=== PATIENT | male | born 1955 | race Caucasian/White ===

== ENCOUNTER → 2018-06-06 | Outpatient (CLI) | payer BC ==
--- NOTE | 2018-06-06 13:04 | CT ---
EXAMINATION TYPE: CT heart w calcium score DATE OF EXAM: 06/06/2018 COMPARISON: HISTORY: Screening for cardiovascular disorder. 213.9 CT DLP: 51.6 mGycm Automated exposure control for dose reduction was used. CT CALCIUM SCORING Coronary calcium is a marker for plaque (fatty deposits) in a blood vessel or atherosclerosis (harden ing of the arteries). The presence and amount of calcium detected in a coronary artery by the CT sca n, indicates the presence and amount of atherosclerotic plaque. These calcium deposits appear years before the development of heart disease symptoms such as chest pain and shortness of breath. A calcium score is computed for each of the coronary arteries based upon the volume and density of th e calcium deposits. This can be referred to as your calcified plaque burden. It does not correspond directly to the percentage of narrowing in the artery but does correlate with the severity of the un derlying coronary atherosclerosis. PROCEDURE TECHNIQUE - Prospective Gating was used. Slice thickness: 3mm. Density threshold (HU): 130, Pixel threshold: 3, Algorithm: discrete. RESULTS Region: LM Calcium Score (Agatston): 100 Volume (mm3): 81 Region: RCA Calcium Score (Agatston): 150 Volume (mm3): 158 Region: LAD Calcium Score (Agatston): 242 Volume (mm3): 190 Region: CX Calcium Score (Agatston): 38 Volume (mm3): 43 Region: PDA Calcium Score (Agatston): 0 Total: Calcium Score (Agatston): 569 TOTAL CALCIUM SCORE: 569 There are calcified lymph nodes in the hilum and mediastinum. Visualized aorta of normal caliber. Hyp ertrophic change of the vertebral column. Heart is enlarged. Small hiatal hernia noted. Calcified granuloma in the left upper lobe. IMPRESSION: Calcium Score: 569 Implication: Extensive atherosclerotic plaque Risk of Coronary Artery Disease: High likelihood of at least one significant coronary narrowing.
== END ==
LOC: RADCTMAIN 08:53
PROVIDERS: ATTEND Family Medicine
DX: E78.2 Mixed hyperlipidemia (principal); I10 Essential (primary) hypertension
CPT/HCPCS: 75571

== ENCOUNTER 2018-07-06 07:50 | Day surgery (SDC) | payer BC ==
[2018-07-04 09:23] VITALS: BMI 26.6
[~2018-07-06 07:50] MED LIST: LACTATED RINGERS 1,000 ML IV SCH
[2018-07-06 08:06] VITALS: TEMP 97.7
[2018-07-06] MEDS ORDERED: LACTATED RINGERS 1,000 ML IV ONE (08:18)
[2018-07-06] MEDS ORDERED: LIDOCAINE 1% 20 ML VIAL (10MG/ML) FOR IV START INTRADERMA ONE (08:19)
[2018-07-06] MEDS ORDERED: PROPOFOL 10 MG/ML 20 ML VIAL IV ONE (08:40)
--- NOTE | 2018-07-06 09:21 | P.PCN ---
Date of Procedure: 07/06/18 Procedure(s) Performed: BRIEF HISTORY: Patient is a 63-year-old pleasant white male, scheduled for an elective colonoscopy as a part of gaining for colon rectal neoplasia. He has family history of colon cancer diagnosed in his father at age 60. PROCEDURE PERFORMED: Colonoscopy. PREOPERATIVE DIAGNOSIS: Screening for colon cancer/family history of colon cancer. IV sedation per Anesthesia. PROCEDURE: After informed consent was obtained, the patient, was brought into the endoscopy unit. IV sedation was administered by Anesthesia under continuous monitoring. Digital rectal examination was normal. Initially the Olympus CF-160 flexible video colonoscope was then inserted in the rectum, gradually advanced into the cecum without any difficulty. Careful examination was performed as the scope was gradually being withdrawn. Ileocecal valve and the appendiceal orifice were visualized and appeared normal. Prep was excellent. Mucosa of the cecum, ascending colon, transverse colon, descending colon, sigmoid colon, and rectum appeared normal. Sigmoid diverticulosis seen Retroflexion was performed in the rectum and no lesions were seen. The patient tolerated the procedure well. IMPRESSION: Normal-appearing colon from rectum to cecum with no evidence of colorectal neoplasia Scattered sigmoidal diverticulosis. RECOMMENDATIONS: Findings of this examination were discussed with the patient as his family. He was advised to have a repeat screening colonoscopy in 5 years because of family history of colon cancer.
[2018-07-06 09:23] VITALS: BP 152/94; PULSE 63; RESP 16
== END 2018-07-06 09:45 | disposition home or self-care (01) ==
LOC: ORWHC2ENDO 07:50
PROVIDERS: ATTEND Internal Medicine Gastroenterology
DX: Z12.11 Encounter for screening for malignant neoplasm of colon (principal); K57.90 Diverticulosis of intestine, part unspecified, without perforation or abscess without bleeding; Z80.0 Family history of malignant neoplasm of digestive organs; I10 Essential (primary) hypertension; E78.5 Hyperlipidemia, unspecified; E07.9 Disorder of thyroid, unspecified; Z79.890 Hormone replacement therapy; Z79.899 Other long term (current) drug therapy
CPT/HCPCS: J2704; G0105

== ENCOUNTER 2018-07-17 10:57 | Day surgery (SDC) | payer BC ==
[2018-07-12 12:14] VITALS: BMI 26.6
[~2018-07-17 10:57] MED LIST changes: +ALPRAZolam 0.25 MG TAB PO PRN; +ASPIRIN 325 MG TAB PO STA; -LACTATED RINGERS 1,000 ML IV SCH; +NITROGLYCERIN SL TABS 0.4 MG TAB SUBLINGUAL PRN; +SODIUM CHLORIDE 0.9% 1,000 ML in EMPTY BAG 1 BAG IV ONE
[2018-07-17 11:33] VITALS: TEMP 98.1
[2018-07-17] MEDS ORDERED: HEPARIN SODIUM 1,000 UN/ML (10ML VL) ONE ×2 (12:01→12:23)
[2018-07-17] MEDS ORDERED: LIDOCAINE 1% INJ 10MG/ML (20 ML MDV) ONE (12:01)
[2018-07-17] MEDS ORDERED: VERAPAMIL 2.5 MG/ML 2 ML AMP ONE (12:01)
[2018-07-17] MEDS ORDERED: fentaNYL (PF) 50 MCG/ML 2 ML AMP ONE (12:01)
[2018-07-17] MEDS ORDERED: fentaNYL (PF) 50 MCG/ML 2 ML AMP IVP ONE (12:11)
[2018-07-17] MEDS ORDERED: MIDAZOLAM (PF) 2 MG/2 ML VIAL IVP ONE (12:18)
[2018-07-17] MEDS ORDERED: LIDOCAINE 1% INJ 10MG/ML (20 ML MDV) SQ ONE (12:22)
[2018-07-17] MEDS: VERAPAMIL SYRINGE (5 MG/10 ML) INTRAARTER ONE ×2 (12:24→12:46)
[2018-07-17] MEDS ORDERED: HEPARIN SODIUM 1,000 UN/ML (10ML VL) IV ONE (12:25)
[2018-07-17] MEDS ORDERED: IOPAMIDOL-370 125ML BTL INJ ONE (12:39)
[2018-07-17] MEDS ORDERED: RX INFO: IV CONTRAST WAS GIVEN 1 EACH MISC MISCELLANE PRN (13:04)
--- NOTE | 2018-07-17 13:10 | P.CARDCATH ---
Date of Procedure: 07/17/18 Preoperative Diagnosis: High calcium score, strong family history of ischemic heart disease with multiple risk factors Postoperative Diagnosis: Calcified coronary system without any critical focal lesions Description of Procedure: HISTORY: This is a 63-year-old gentleman with history of hypertension, hypercholesteremia and strong family history of ischemic heart disease who was evaluated by computed tomography scan for calcium score. Patient was found to have high calcium score and patient was concerned about underlying ischemic heart disease. He is advised to have a cardiac catheterization for definitive diagnosis. CONSENT:I have discussed the risks, benefits and alternative therapies for the above-mentioned procedure and for both sedation/analgesia as well as necessary blood product administration, if indicated, as they pertain to this patient. The patient has indicated understanding and acceptance of the risks and procedures discussed. PROCEDURE: Patient was brought to the lab in a fasting state. Patient was given some IV sedation. The right wrist is infiltrated with lidocaine and right radial artery was entered using Seldinger technique. A 6-Croatian catheter was left in place and selective coronary arteriography was performed. Patient tolerated the procedure well. TR band was applied for hemostasis. No immediate complications were noted and patient was transferred to [facility] in a stable condition Conscious Sedation: Versed 1mg Fentanyl 50 g Duration 22minutes HEMODYNAMICS: The aortic pressure is about 110/70. The left ventricular end- diastolic pressure is about 8. There was no gradient across the aortic valve SELECTIVE CORONARY ARTERIOGRAPHY: LEFT MAIN: This is a long and free of any significant focal lesions. There is calcification and mild intimal thickening THE LEFT ANTERIOR DESCENDING CORONARY ARTERY:. This is a fair caliber vessel giving rise to good-sized diagonal branch to the LAD also shows calcification the proximal portion. There is no significant critical lesion in the LAD system THE LEFT CIRCUMFLEX AND IS CORONARY ARTERY: This is a moderate caliber vessel giving rise to 2 OM branches. Hasn't calcification and mild irregularity in the proximal and mid portions. No critical lesions noted THE RIGHT CORONARY ARTERY:. This vessel is moderate in caliber and codominant in distribution. Has mild calcification and intimal plaque without any significant focal lesion LEFT VENTRICULOGRAPHY:. Not performed FINAL IMPRESSION: Calcification and mild intimal disease involving all vessels. No critical focal lesion PLAN: Maximum medical therapy and this factor modification PROGNOSIS: Fair
[2018-07-17] MEDS ORDERED: SODIUM CHLORIDE 0.9% 1,000 ML IV SCH (13:15)
[2018-07-17 13:48] VITALS: BP 129/83; PULSE 62; RESP 16
== END 2018-07-17 17:00 | disposition home or self-care (01) ==
LOC: CATHCVL 10:57
PROVIDERS: ATTEND Internal Medicine Cardiovascular Disease
DX: I25.10 Atherosclerotic heart disease of native coronary artery without angina pectoris (principal); E78.5 Hyperlipidemia, unspecified; I10 Essential (primary) hypertension; Z82.49 Family history of ischemic heart disease and other diseases of the circulatory system; Z79.82 Long term (current) use of aspirin; Z79.890 Hormone replacement therapy; Z79.899 Other long term (current) drug therapy
CPT/HCPCS: 93458; C1769; C1894; J2001; J3010; J1644; Q9967; J2250

== ENCOUNTER 2019-02-15 21:36 | Emergency (ER) | payer BC, MEDICARE ==
[2019-02-15] MEDS ORDERED: ASPIRIN 81 MG PO STA (21:50)
[2019-02-15 22:11] LABS: Basophils # (A) 0.1 k/uL (0-0.2); Basophils % (A) 1 %; Eosinophils # (A) 0.2 k/uL (0-0.7); Eosinophils % (A) 2 %; HCT 41.8 % (39.0-53.0); HGB 13.8 gm/dL (13.0-17.5); Lymphocytes # (A) 2.5 k/uL (1.0-4.8); Lymphocytes % (A) 33 %; MCH 28.5 pg (25.0-35.0); MCHC 32.9 g/dL (31.0-37.0); MCV 86.7 fL (80.0-100.0); Mean Platelet Volume 7.3; Monocytes # (A) 0.4 k/uL (0-1.0); Monocytes % (A) 5 %; Neutrophils # (A) 4.3 k/uL (1.3-7.7); Neutrophils % (A) 56 %; Platelet Count 206 k/uL (150-450); RBC 4.82 m/uL (4.30-5.90); RDW 13.1 % (11.5-15.5); WBC 7.6 k/uL (3.8-10.6)
[2019-02-15 22:24] LABS: INR 0.9 (<1.2); Prothrombin Time 9.7 sec (9.0-12.0)
--- NOTE | 2019-02-15 22:24 | XR ---
EXAMINATION TYPE: XR chest 2V DATE OF EXAM: 02/15/2019 COMPARISON: 09/17/2010 HISTORY: Left side chest pain TECHNIQUE: Frontal and lateral views of the chest are obtained. FINDINGS: Heart is normal. Lungs are clear of infiltrate. There is no heart failure. There are small calcified granulomata at the pulmonary sushma. There is no pleural effusion. There are chest leads. Prashanth ny thorax is intact. IMPRESSION: No active cardiopulmonary disease. No change. Old granulomatous disease.
[2019-02-15 22:25] LABS: ALT 20 U/L (21-72); AST 21 U/L (17-59); African American GFR (CKD) >90 (>60 ml/min/1.73 sqM); Albumin 4.3 g/dL (3.5-5.0); Alkaline Phosphatase 42 U/L (38-126); Anion Gap 6 mmol/L; Blood Urea Nitrogen 15 mg/dL (9-20); Calcium 9.9 mg/dL (8.4-10.2); Carbon Dioxide 29 mmol/L (22-30); Chloride 105 mmol/L (98-107); Glucose 92 mg/dL (74-99); Magnesium 2.2 mg/dL (1.6-2.3); Non-African American GFR(CKD) >90 (>60 ml/min/1.73 sqM); Potassium 4.2 mmol/L (3.5-5.1); Sodium 140 mmol/L (137-145); Total Bilirubin 0.5 mg/dL (0.2-1.3); Total Protein 7.2 g/dL (6.3-8.2)
[2019-02-15 22:59] VITALS: RESP 18
--- NOTE | 2019-02-15 23:27 | ED ---
Chest Pain HPI - General Chief Complaint: Chest Pain Stated Complaint: chest pain Time Seen by Provider: 02/15/19 21:49 Source: patient Mode of arrival: ambulatory Limitations: no limitations - History of Present Illness Initial Comments: Chato is a 64-year-old gentleman who presents the emergency department today for evaluation of intermittent burning pain when breathing cold air. Patient states that earlier this week he had vein stripping of his left lower leg. Patient states he's been doing well after that. He states that yesterday evening he went to his son's house which is just down the street from his house, he states that upon driving home on his [address] he felt that the cold air was burning his lungs. He states that after parking the vehicle and walking and his house he felt some discomfort with taking deep breaths. Upon getting in the house this completely resolved. Patient states that this happened 3 more times during the day today but only while being outside. Patient denies any chest pain with exertion. He reports he was able to cut wood for over 10 hours today without any chest pain palpitations lightheadedness or diaphoresis. Patient states that again this evening he went to his son's house and when coming home in the cold air felt the same discomfort. He discussed this with his son who encouraged him to come to the ER for further evaluation. Patient expressed concern that he could have blood clot in his lungs due to the recent pain stripping. She has no history of DVT or PE. He has no history of cancer hypercoagulability. He is not on any type of hormone or estrogen supplement. He's not had any immobilization. He has no swelling or redness of his leg. Persistent pleuritic chest pain, palpitations or shortness of breath. He is not tachycardic or hypoxic. She also notes that he had an abnormal cardiac calcium scan earlier in the year so he underwent hernia catheterization in July and was advised that he had a normal cardiac catheterization no indication for stenting. He saw his technical business systems analyst again last month and was doing well at that appointment. Daily aspirin full dose. - Related Data Home Medications Medication Instructions Recorded Confirmed Aspirin 325 mg PO DAILY 07/04/18 07/17/18 Cholecalciferol (Vitamin D3) 2,000 unit PO BID 07/04/18 07/17/18 [Vitamin D3] Finasteride [Proscar] 5 mg PO PC-LUNCH 07/04/18 07/17/18 Levothyroxine Sodium [Synthroid] 100 mcg PO DAILY 07/04/18 07/17/18 Metoprolol Succinate [Toprol XL] 25 mg PO DAILY 07/04/18 07/17/18 Simvastatin [Zocor] 40 mg PO HS 07/04/18 07/17/18 Vitamin K(Dose Unknown) 2 tab PO DAILY 07/04/18 07/17/18 Allergies Allergy/AdvReac Type Severity Reaction Status Date / Time adhesive tape Allergy Rash/Hives Verified 02/15/19 21:44 Review of Systems ROS Statement: Those systems with pertinent positive or pertinent negative responses have been documented in the HPI. ROS Other: All systems not noted in ROS Statement are negative. EKG Findings - EKG Comments: EKG Findings:: EKG was obtained due to complaint of intermittent chest pain for over 24 hours. EKG was obtained 2149. Rate is 63 bpm, rhythm is narrow complex regular rhythm with a P-wave before each QRS consistent with sinus rhythm. There is a normal axis, there are normal intervals, MD 156, QRS 96, QTC 411 there are no acute ST elevations or depressions there is no evidence of acute ischemia or infarction. Past Medical History Past Medical History: Hyperlipidemia, Hypertension, Thyroid Disorder Additional Past Medical History / Comment(s): varicose veins, "calcium buildup in arteries" History of Any Multi-Drug Resistant Organisms: None Reported Past Surgical History: Hernia Repair, Orthopedic Surgery Additional Past Surgical History / Comment(s): left knee arthroscopy, benign growth removed from testicle. COLONOSCOPY 07/06/18 Past Anesthesia/Blood Transfusion Reactions: No Reported Reaction Past Psychological History: No Psychological Hx Reported Smoking Status: Former smoker Past Alcohol Use History: None Reported Past Drug Use History: None Reported - Past Family History Father Family Medical History: Cancer, Deep Vein Thrombosis (DVT) Additional Family Medical History / Comment(s): colon General Exam - General Exam Comments Initial Comments: Physical Exam GENERAL: Patient is well-developed and well-nourished. Patient is nontoxic and well- hydrated and is in no distress. HENT: Normocephalic, Atraumatic. EYES: PERRL, EOMI PULMONARY: Unlabored respirations. No audible rales rhonchi or wheezing was noted. CARDIOVASCULAR: There is a regular rate and rhythm without any murmurs gallops or rubs. ABDOMEN: Soft and nontender with normal bowel sounds. SKIN: Exam left lower extremity consistent with recent vein stripping : Deferred NEUROLOGIC: Patient is alert and oriented x3. Moving all extremities spontaneously MUSCULOSKELETAL: Normal extremities with adequate strength and full range of motion. No lower extremity swelling or edema. No calf tenderness. PSYCHIATRIC: Normal psychiatric evaluation. Limitations: no limitations Course Vital Signs 02/15/19 02/15/19 02/15/19 21:40 21:43 22:43 Temperature 98.1 F Pulse Rate 65 70 Pulse Rate [ 77 Bilateral] Respiratory 20 18 Rate Blood Pressure 189/102 159/94 O2 Sat by Pulse 99 100 Oximetry 02/15/19 23:43 Temperature 98 F Pulse Rate 79 Pulse Rate [ Bilateral] Respiratory 18 Rate Blood Pressure 161/100 O2 Sat by Pulse 97 Oximetry Chest Pain MDM - MDM Patient was seen and evaluated history is obtained from the patient and family at bedside. 64-year-old who had been stripping earlier in the week has had intermittent burning-like discomfort seems to be worse when out in the cold and better when indoors. Is not exertional. It is not constant is not associated with any complaints. Patient became concerned he may have a PE due to his recent vein stripping though he has no risk factors. No hypoxia no tachycardia. that the patient and a recent vein stripping procedure his d-dimer is likely to be elevated and did not have any use. EKG with no ischemia. Labs were obtained there is no elevation of the BNP, troponin is undetectable. Considering the patient's symptoms initially began 26 hours ago and seemed to be transient I very low suspicion for acute coronary syndrome. This was discussed the patient. All questions pertaining care were answered return parameters were discussed patient was comfortable with plan for discharge home and outpatient follow-up. Disposition Clinical Impression: Atypical chest pain Disposition: HOME SELF-CARE Condition: Stable Instructions (If sedation given, give patient instructions): Chest Pain (ED) Additional Instructions: Follow up with your primary care doctor for reevaluation next week Return to the emergency department if he have any new, worsening or persistent chest pain. Is patient prescribed a controlled substance at d/c from ED?: No Referrals: Cosme Gutierrez DO [Primary Care Provider] - 1-2 days
[2019-02-15 23:44] VITALS: BP 161/100; PULSE 79; TEMP 98
== END 2019-02-15 23:44 | disposition home or self-care (01) ==
LOC: EC 21:36
DX: R07.89 Other chest pain (principal); E78.5 Hyperlipidemia, unspecified; I10 Essential (primary) hypertension; E07.9 Disorder of thyroid, unspecified; Z87.891 Personal history of nicotine dependence; Z91.048 Other nonmedicinal substance allergy status; Z79.82 Long term (current) use of aspirin; Z79.890 Hormone replacement therapy; Z79.899 Other long term (current) drug therapy; Z95.818 Presence of other cardiac implants and grafts; Z82.49 Family history of ischemic heart disease and other diseases of the circulatory system
CPT/HCPCS: 36415; 71046; 80053; 83735; 83880; 84484; 85025; 85610; 85730; 93005; 99285

== ENCOUNTER → 2021-05-28 | Outpatient (CLI) | payer MEDICARE ==
--- NOTE | 2021-05-28 10:10 | XR ---
EXAMINATION TYPE: XR knee complete RT DATE OF EXAM: 05/28/2021 COMPARISON: NONE HISTORY: 66-year-old male [id number], [id number] RT KNEE PAIN, RT KNEE EFFUSION TECHNIQUE: 3 views FINDINGS: The prepatellar soft tissues are thickened up to nearly 2 cm. Extensor mechanism appears intact. No s ignificant underlying knee joint effusion seen on the lateral view. There is some mild vascular calci fications. There is degenerative spurring in the medial compartment bilaterally with mild to moderate underlying degenerative change. No acute fracture, subluxation, dislocation. IMPRESSION: 1. Prepatellar soft tissues are thickened nearly up to 2 cm. Some considerations include soft tissue contusion, cellulitis, or prepatellar bursitis. Clinically correlate. 2. Medial compartmental OA. No significant underlying joint effusion.
== END | disposition home or self-care (01) ==
LOC: RADXRYALE 08:49
PROVIDERS: ATTEND Family Medicine
DX: M17.11 Unilateral primary osteoarthritis, right knee (principal)

== ENCOUNTER → 2021-08-05 | Outpatient (CLI) | payer MEDICARE ==
--- NOTE | 2021-08-05 14:49 | XR ---
EXAMINATION TYPE: XR abdomen 1V DATE OF EXAM: 08/05/2021 COMPARISON: NONE INDICATION: 64-year-old male, hematuria, left flank pain TECHNIQUE: Single AP view of the abdomen and pelvis. FINDINGS: Bilateral pelvic phleboliths. Questionable 2 mm left upper pole renal calculus versus colonic content . The kidneys are partially obscured by the overlying bowel gas and fecal material. No other definite radiodense urinary calculi. Further CT assessment can be considered if clinically r equired. Arterial atherosclerotic calcifications. IMPRESSION: Questionable 2 mm left upper pole renal calculus versus colonic content, suboptimally assessed by thi s x-ray. Further CT assessment can be considered if clinically required.
== END | disposition home or self-care (01) ==
LOC: RADXRYALE 09:41
PROVIDERS: ATTEND Family Medicine
DX: R10.9 Unspecified abdominal pain (principal); R31.9 Hematuria, unspecified
CPT/HCPCS: 74018

== ENCOUNTER → 2023-12-07 | Outpatient (CLI) | payer MEDICARE ==
--- NOTE | 2023-12-09 12:12 | XR ---
Left foot. HISTORY: Pain. COMPARISON: None TECHNIQUE: 3 views left foot were obtained. FINDINGS: There is no fracture, dislocation, intraosseous or intra-articular abnormality. There is a small plan tar calcaneal spur. IMPRESSION: No acute trauma and no significant abnormality seen. [facility], Workstation: [facility], 12/09/2023 12:10 PM
== END | disposition home or self-care (01) ==
LOC: RADXRYALE 11:42
PROVIDERS: ATTEND Family Medicine
DX: M25.572 Pain in left ankle and joints of left foot (principal)

== ENCOUNTER → 2024-01-02 | Day surgery (SDC) | payer MEDICARE ==
[~2024-01-02] MED LIST changes: -ALPRAZolam 0.25 MG TAB PO PRN; -ASPIRIN 325 MG TAB PO STA; +LIDOCAINE 1% (10MG/ML) FOR IV START INTRADERMA PRN; +LIDOCAINE 1% INJ 10MG/ML (20 ML MDV) ONE; -NITROGLYCERIN SL TABS 0.4 MG TAB SUBLINGUAL PRN; +ONDANSETRON 4 MG/2 ML VIAL IVP PRN; +PROPOFOL 10 MG/ML 20 ML VIAL IV ONE; -SODIUM CHLORIDE 0.9% 1,000 ML in EMPTY BAG 1 BAG IV ONE
[2024-01-02 09:50] VITALS: TEMP 97.8
[2024-01-02] MEDS: IV FLUID CONTINUATION 1,000 ML IV ONE (09:51)
[2024-01-02] MEDS: LACTATED RINGERS 1,000 ML IV SCH (09:59)
[2024-01-02 10:01] LABS: Glucose,Whole Blood 85 mg/dL (70-110)
--- NOTE | 2024-01-02 11:19 | P.PCN ---
Date of Procedure: 01/02/24 Procedure(s) Performed: BRIEF HISTORY: Patient is a 68-year-old pleasant white male scheduled for an elective colonoscopy as a part of for colon cancer and family history of colon cancer. His dad was diagnosed with colon cancer at age 60 PROCEDURE PERFORMED: Colonoscopy. PREOPERATIVE DIAGNOSIS: Screening for colon cancer and family history of colon cancer. IV sedation per Anesthesia. PROCEDURE: After informed consent was obtained, the patient, was brought into the endoscopy unit. IV sedation was administered by Anesthesia under continuous monitoring. Digital rectal examination was normal. Initially the Olympus CF-160 flexible video colonoscope was then inserted in the rectum, gradually advanced into the cecum without any difficulty. Careful examination was performed as the scope was gradually being withdrawn. Ileocecal valve and the appendiceal orifice were visualized and appeared normal. Prep was excellent. Mucosa of the cecum, ascending colon, transverse colon, descending colon, sigmoid colon, and rectum appeared normal. Retroflexion was performed in the rectum and no lesions were seen. Scattered sigmoid diverticulosis the patient tolerated the procedure well. IMPRESSION: Normal-appearing colon from rectum to cecum with no evidence of colorectal neoplasia. Sigmoid diverticulosis. RECOMMENDATIONS: Findings of this examination were discussed with the patient as well as his family. He was advised to have repeat screening colonoscopy in 5 years because of the family history of colon cancer
[2024-01-02 11:32] VITALS: RESP 16
[2024-01-02 11:41] VITALS: BP 136/84; PULSE 66
== END | disposition home or self-care (01) ==
LOC: ORWHC2ENDO 09:31
PROVIDERS: ATTEND Internal Medicine Gastroenterology
DX: Z12.11 Encounter for screening for malignant neoplasm of colon (principal); K57.30 Diverticulosis of large intestine without perforation or abscess without bleeding; Z80.0 Family history of malignant neoplasm of digestive organs; Z79.899 Other long term (current) drug therapy
CPT/HCPCS: J2003; J2704; G0105

== ENCOUNTER → 2024-01-22 | Outpatient (CLI) | payer MEDICARE ==
--- NOTE | 2024-01-22 11:39 | XR ---
EXAMINATION TYPE: XR shoulder complete LT DATE OF EXAM: 01/22/2024 11:35 AM INDICATION: Patient age:Male; 69 years old; Reason for study: [id number] LT SHLD PAIN; COMPARISON: Chest radiograph 02/15/2019 TECHNIQUE: The left shoulder was examined in AP, internally rotated and scapular Y projections. 3 pr ojections . FINDINGS: No evidence of acute osseous pathology, joint dislocation, or soft tissue swelling. AC joint arthropa thy with undersurface spurring. The remaining portions of the visualized chest are unremarkable. IMPRESSION: 1. No acute osseous pathology. 2. Moderate AC joint arthropathy with undersurface spurring. [facility], , 01/22/2024 11:37 AM
== END | disposition home or self-care (01) ==
LOC: RADXRYALE 11:04
PROVIDERS: ATTEND Family Medicine
DX: M19.012 Primary osteoarthritis, left shoulder (principal)